=== PATIENT | female | born 1970 | race Caucasian/White ===

== ENCOUNTER 2020-08-31 07:11 | Emergency (ER) | payer BC ==
[~2020-08-31] VITALS: Ht 175.3 cm; Wt 102.7 kg
[~2020-08-31 07:11] MED LIST: AMITRIPTYLINE H10 M1; AMITRIPTYLINE H50 M1 PO; B-121000 MCG PO; CYMBALTA 30MG30 MG PO; CYMBALTA 60MG60 MG PO; MOTRIN 200200 MG/TAB PO; NEURONTIN400 MG/CAP PO; NEURONTIN600 MG/TAB PO; NORCO 325 MG-51 TAB PO; PERCOCET 325 MG1 TA2 PO; PRILOSEC 20MG20 MG PO; PROTONIX 40MG T40 MG PO; REQUIP 1MG T1 MG/TAB PO; REQUIP0.25 MG PO; VALIUM 10MG10 MG/TAB PO; VITAMIN D31000 IU PO; XANAX .25M0.25 MG/TA PO; ZANTAC 150MG T150 MG PO
[2020-08-31 07:24] VITALS: BP 134/91; TEMP 97.6
[2020-08-31 07:55] LABS: HEMATOCRIT 41.3 % (37.0-47.0); HEMOGLOBIN 14.3 g/dl (12.5-16.0); MEAN CELL VOLUME 87 fl (80.0-100.0); MEAN CORPUSCULAR HEMOGLOBIN 30 pg (27.0-31.0); MEAN CORPUSCULAR HGB CONC 35 g/dl (33.0-37.0); MEAN PLATELET VOLUME 10.3 fl (7.4-10.4); PLATELET COUNT 230 K/mm3 (130-400); RED BLOOD COUNT 4.74 M/mm3 (4.10-5.30); REDCELL DISTRIBUTION WIDTH-CV 14.2 % (11.5-14.5)
[2020-08-31 07:57] LABS: INR 1.1 (0.8-3.0); PROTHROMBIN TIME 12.7 SECONDS (9.7-12.8)
[2020-08-31 08:00] LABS: PARTIAL THROMBOPLASTIN TIME 29.7 SECONDS (26.0-37.0)
[2020-08-31 08:04] LABS: ALANINE AMINOTRANSFERASE 44 U/L (4-34); ALBUMIN 4.2 gm/dL (3.5-5.0); ALKALINE PHOSPHATASE 109 U/L (50-136); ANION GAP 11 mmol/L (7-16); AST,SGOT 68 U/L (15-37); BILIRUBIN,TOTAL 1.4 mg/dL (0.0-1.0); BLOOD UREA NITROGEN 13 mg/dL (7-17); CALCIUM 8.4 mg/dL (8.4-10.2); CARBON DIOXIDE 22 mmol/L (22-30); CHLORIDE 101 mmol/L (98-107); CREATININE, serum 0.65 (0.52-1.25); GLUCOSE 74 mg/dL (74-106); LIPASE 67 U/L (23-300); POTASSIUM 3.8 mmol/L (3.4-5.0); SODIUM 134 mmol/L (137-145); TOTAL PROTEIN 7.6 gm/dL (6.4-8.2)
[2020-08-31 08:15] LABS: TROPONIN-I < 0.012 ng/mL (0.000-0.035)
[2020-08-31 08:20] LABS: BAND 18 % (0-10); BASOPHIL 1 % (0-2); EOSINOPHIL 1 % (0-4); LYMPHOCYTE 26 % (20.0-51.0); METAMYELOCYTE 1 % (0-0); NEUTROPHILS 49 % (42.0-75.2); PLATELET ESTIMATE NORMAL (NORMAL)
[2020-08-31 09:43] VITALS: PULSE 95
== END 2020-08-31 09:43 | disposition home or self-care (01) ==
LOC: COL.ER 07:11
PROVIDERS: Emergency Medicine
DX: D72.825 Bandemia (principal); R10.13 Epigastric pain; Z90.49 Acquired absence of other specified parts of digestive tract; Z88.0 Allergy status to penicillin; Z88.1 Allergy status to other antibiotic agents; Z88.6 Allergy status to analgesic agent
CPT/HCPCS: J2060; J2270; J2405; J7030; Q9967

== ENCOUNTER 2021-02-24 08:12 | Emergency (ER) | payer OTHER ==
[~2021-02-24] VITALS: Ht 175.3 cm; Wt 104.5 kg
[2021-02-24 08:37] VITALS: TEMP 98.4
[2021-02-24 10:17] VITALS: BP 154/99; PULSE 71
[2021-02-24] MEDS ORDERED: NORCO 325 MG-51 TAB PO (10:18)
== END 2021-02-24 10:26 | disposition home or self-care (01) ==
LOC: COL.ER 08:12
DX: S13.9XXA Sprain of joints and ligaments of unspecified parts of neck, initial encounter (principal); S50.01XA Contusion of right elbow, initial encounter; S09.90XA Unspecified injury of head, initial encounter; F32.9 Major depressive disorder, single episode, unspecified; F41.9 Anxiety disorder, unspecified; Z79.899 Other long term (current) drug therapy; V49.49XA Driver injured in collision with other motor vehicles in traffic accident, initial encounter; Y92.410 Unspecified street and highway as the place of occurrence of the external cause

== ENCOUNTER 2021-05-31 11:54 | Day surgery (SDC) | payer BC ==
[~2021-05-31] VITALS: Ht 175.3 cm; Wt 111.5 kg
[~2021-05-31 11:54] MED LIST changes: +ZOFRAN ODT4 MG PO
[2021-05-31] MEDS ORDERED: SEROQUEL 2525 MG/TAB PO (12:24)
[2021-05-31] MEDS ORDERED: PRILOSEC 20MG20 MG PO (12:24)
[2021-05-31 13:18] VITALS: BP 143/82; PULSE 78; TEMP 98.2
[2021-05-31 17:30] VITALS: BP 159/89; PULSE 80; TEMP 98.7
--- NOTE | 2021-05-31 17:30 | NUR ---
PATIENT TRANSPORTED PER CART FROM PACU TO BAY 6 ACCOMPANIED BY PRODUCTION ADMINISTRATIVE ASSISTANT. MONITORS APPLIED. LT LEG ELEVATED AND ICE APPLIED. TOES ARE PINK AND WARM WITH GOOD CAPILLARY REFILL. PATIENT TALKS WITH STAFF AND FAMILY. IV INFUSING. PATIENT DENIES DISCOMFORT AND NAUSEA. PATIENT TAKING ICE CHIPS. PATIENT GIVEN CLUB CRACKER AND ICE WATER.
[2021-05-31 17:45] VITALS: BP 149/87; PULSE 107
--- NOTE | 2021-05-31 17:45 | NUR ---
VSS ON ROOM AIR. PATIENT TOLERATES CRACKERS AND WATER WITHOUT PROBLEMS. PATIENT STATES DISCOMFORT IS MANAGABLE.
[2021-05-31 18:00] VITALS: BP 138/75; PULSE 86
--- NOTE | 2021-05-31 18:00 | NUR ---
PATIENT REQUESTS TO VOID. COMMODE BROUGHT TO ROOM AND PATIENT TRANSFERS WITH 2 ASSIST KEEPING LEFT LEG STRAIGHT WITH BRACE. PATIENT VOIDS WITHOUT PROBLEMS. PATIENT STATES SHE IS READY TO GO HOME. 180 IV DC'D WITH CATHETER TIP INTACT. PRESSURE AND BANDAGE APPLIED. 180 DISCHARGE INSTRUCTIONS GIVEN VERBAL AND DISCHARGE PACKET PROVIDED. QUESTIONS ANSWERED AND PATIENT AND VOICED UNDERSTANDING. HELPS WITH PATIENT NEEDS AND TRANSFER. ASSISTS PATIENT WITH CHANGING INTO STREET CLOTHES. 181 PATIENT DISCHARGED PER WHEEL CHAIR ACCOMPANIED BY AMB RN [facility] .
== END 2021-05-31 18:19 | disposition home or self-care (01) ==
LOC: SDCO 11:54
DX: M97.12XA Periprosthetic fracture around internal prosthetic left knee joint, initial encounter (principal); M19.90 Unspecified osteoarthritis, unspecified site; K21.9 Gastro-esophageal reflux disease without esophagitis; J45.909 Unspecified asthma, uncomplicated; F32.A Depression, unspecified; F41.9 Anxiety disorder, unspecified; Z79.891 Long term (current) use of opiate analgesic; Z79.899 Other long term (current) drug therapy; Z83.3 Family history of diabetes mellitus; Z82.49 Family history of ischemic heart disease and other diseases of the circulatory system
CPT/HCPCS: J0690; J1885; J2250; J2405; J2704; J3010; J7120; L1832

== ENCOUNTER 2024-02-08 09:15 | Day surgery (SDC) | payer BC ==
[~2024-02-08] VITALS: Ht 175.3 cm; Wt 91.2 kg
[~2024-02-08 09:15] MED LIST changes: +FLEXERIL 1010 MG/TAB PO; +LIDODERM 5% PATC1 EA TP; +LR 1,000 ML IV SCH; +Ondansetron 4 MG/2 ML VIAL IV PRN; +SEROQUEL 2525 MG/TAB PO
[2024-02-08 09:41] VITALS: BP 138/90; PULSE 79; TEMP 97.7
--- NOTE | 2024-02-08 10:06 | NUR ---
The patient ambulated back to [place] [facility] independently using a steady gait and appeared to tolerate the activity well. Vital signs obtained. Consent signed. 20G IV started in right hand with one stick, LR infusing without diffiuclty. Assessment completed. Home medications reconcilled. Warm blanket provided. , Curry, at bedside. Denies any further needs at this time.
[2024-02-08] MEDS ORDERED: ERGOCALCIFER50000 IU PO (10:11)
[2024-02-08] MEDS ORDERED: WELLBUTRIN XL150 MG PO (10:11)
[2024-02-08] MEDS ORDERED: WEGOVY2.4 MG/0.7 SQ (10:11)
[2024-02-08] MEDS ORDERED: CLARITIN 1010 MG/TAB PO (10:12)
[2024-02-08] MEDS ORDERED: PREMPRO 0.45 MG1 TAB PO (10:12)
[2024-02-08] MEDS ORDERED: CENTRUM SILVER1 TAB PO (10:12)
[2024-02-08] MEDS ORDERED: Lidocaine PF 2% (20 MG/ML) 5 ML VIAL ONE (10:29)
[2024-02-08 11:38] VITALS: BP 128/88; PULSE 76; TEMP 97.4
[2024-02-08 11:45] VITALS: BP 146/96; PULSE 76
[2024-02-08 12:00] VITALS: BP 130/84; PULSE 74
--- NOTE | 2024-02-08 12:15 | NUR ---
Pt returned via cart to recliner in bay 7 at 1138. Pt drowsy but oriented. Spouse present in room. VSS-see flowsheet. Tolerated oral intake. Dr Mcginnis in to visit post procedure. IV removed and pressure dressing applied. After pt dressing, taken via wheelchair to private vehicle for dc home with spouse driving.
== END 2024-02-08 12:15 | disposition home or self-care (01) ==
LOC: SDCO 09:15
DX: K31.7 Polyp of stomach and duodenum (principal); K62.89 Other specified diseases of anus and rectum; K59.00 Constipation, unspecified; K20.90 Esophagitis, unspecified without bleeding; K44.9 Diaphragmatic hernia without obstruction or gangrene; K31.89 Other diseases of stomach and duodenum; Z98.84 Bariatric surgery status
CPT/HCPCS: J2704; J7120